=== PATIENT | male | born 2000 | race Hispanic/Latino ===

== ENCOUNTER 2024-11-03 00:16 | Emergency (ER) | payer OTHER ==
[2024-11-03 00:44] LABS: Bacteria/HPF None Seen HPF (None Seen); Bilirubin Negative (Negative); Blood, Urine 1+ (Negative); CAUTI Indications for Culture Dysuria,urgency,freq; Clarity Clear (Clear); Glucose, Urine (Dipstick) Normal (Negative); Ketone, Urine Trace mg/dL (Negative); Leukocyte Negative Leu/uL (Negative); Nitrite Negative (Negative); Protein, Urine (Dipstick) 50 mg/dL (Neg-Trace); Specific Gravity, Urine 1.037 (1.002-1.036); Squamous Epithelial None Seen HPF (0-3); WBC/HPF 0-3 HPF (0-3)
[2024-11-03 00:51] LABS: Urine Culture Reflex No No
== END 2024-11-03 01:37 | disposition home or self-care (01) ==
LOC: ERS 00:16
DX: N50.812 Left testicular pain (principal)
CPT/HCPCS: 76870; 81001; 93976